=== PATIENT | male | born 1970 | race Caucasian/White ===

== ENCOUNTER 2018-01-02 16:42 | Emergency (ER) | payer OTHER ==
[2018-01-02 16:57] VITALS: O2SAT 98
--- NOTE | 2018-01-02 17:20 | ERPHSYRPT ---
- History of Present Illness Time Seen by Provider: 01/02/18 17:12 Source: patient Exam Limitations: no limitations Patient Subjective Stated Complaint: Cough, Left sided rib pain Triage Nursing Assessment: Pt presents to the ED with complaints of cough and left sided rib pain. Pt states no injury to rib area, pain worse with deep breathing and movement. No distress noted, skin PWD. Physician History: The patient is a 47-year-old male with his mother complaining of a cough and chills for 2 weeks. Last night he started to have left-sided rib pain with each breath and with coughing. He smokes. He he denies shortness of breath. He denies chest pain. His past medical history is significant for high cholesterol. Timing/Duration: week(s) (2) Cough Quality/Degree: moderate, dry cough Possible Cause: no prior episodes Modifying Factors: Improves With: coughing, deep breath Associated Symptoms: chills Allergies/Adverse Reactions: strawberry Allergy (Severe, Verified 01/02/18 16:59) Swelling latex Allergy (Mild, Verified 01/02/18 16:59) Hives Home Medications: Aspirin EC 81 mg [Ecotrin 81 mg] 81 mg PO DAILY 07/18/17 [History] Hx Tetanus, Diphtheria Vaccination/Date Given: No Hx Influenza Vaccination/Date Given: No Hx Pneumococcal Vaccination/Date Given: No Immunizations Up to Date: No - Review of Systems Constitutional: Chills Eyes: No Symptoms Ears, Nose, & Throat: No Symptoms Respiratory: Cough Cardiac: Other (rib pain) Abdominal/Gastrointestinal: No Abdominal Pain, No Nausea, No Vomiting, No Diarrhea Genitourinary Symptoms: No Dysuria Musculoskeletal: No Back Pain, No Neck Pain Skin: No Rash Neurological: No Dizziness, No Focal Weakness, No Sensory Changes Psychological: No Symptoms Endocrine: No Symptoms Hematologic/Lymphatic: No Symptoms Immunological/Allergic: No Symptoms All Other Systems: Reviewed and Negative - Past Medical History Neurological History: No Pertinent History Cardiac History: Arrhythmia, Coronary Artery Disease Respiratory History: COPD Endocrine Medical History: No Pertinent History Musculoskeletal History: Arthritis, Degenerative Disk Disease, Fractures - Past Surgical History Past Surgical History: Yes Neuro Surgical History: No Pertinent History Cardiac: No Pertinent History Respiratory: No Pertinent History Gastrointestinal: No Pertinent History Genitourinary: No Pertinent History Musculoskeletal: Orthopedic Surgery Male Surgical History: No Pertinent History Other Surgical History: Finger and ankle surgery - Social History Smoking Status: Current every day smoker How long have you smoked: 30years Exposure to second hand smoke: Yes Drug Use: none Patient Lives Alone: No - Nursing Vital Signs Nursing Vital Signs: Initial Vital Signs Temperature 98.4 F 01/02/18 16:53 Pulse Rate 76 01/02/18 16:53 Respiratory Rate 18 01/02/18 16:53 Blood Pressure 112/76 01/02/18 16:53 O2 Sat by Pulse Oximetry 98 01/02/18 16:53 Pain Scale Pain Intensity 7 - Physical Exam General Appearance: mild distress Eye Exam: PERRL/EOMI, eyes nml inspection Ears, Nose, Throat Exam: normal ENT inspection, TMs normal, pharynx normal, moist mucous membranes Neck Exam: normal inspection, non-tender, supple, full range of motion Respiratory Exam: normal breath sounds, lungs clear, No respiratory distress Cardiovascular Exam: regular rate/rhythm, normal heart sounds Gastrointestinal/Abdomen Exam: soft, No tenderness Rectal Exam: not done Back Exam: normal inspection, No CVA tenderness, No vertebral tenderness Extremity Exam: normal inspection, normal range of motion Neurologic Exam: alert, oriented x 3, cooperative, normal mood/affect, sensation nml, No motor deficits Skin Exam: normal color, warm, dry, No rash Lymphatic Exam: No adenopathy SpO2 Interpretation: normal SpO2: 98 Oxygen Delivery: Room Air - Progress Progress: unchanged Air Movement: good Progress Note: 01/02/18 17:24 Pt offered CXR and pt declined. Blood Culture(s) Obtained: No Antibiotics given: No Counseled pt/family regarding: diagnosis - Departure Time of Disposition: 17:24 Departure Disposition: Home Clinical Impression: Bronchitis, Pleurisy Condition: Stable Critical Care Time: No Referrals: DIEUDONNE BARCENAS [Primary Care Provider] - Additional Instructions: You have bronchitis and pleurisy. You were given Toradol 60 mg and Rocephin 1 g by IM ER. Take azithromycin as directed. Take naproxen 500 mg every 12 hours as needed for pain. Follow-up on Saturday if no improvement. Prescriptions: Azithromycin 250 mg [Zithromax 250 MG TABLET] 250 mg PO ZPACK #6 tablet Naproxen 500 mg PO BID PRN #30 tablet.
[2018-01-02] MEDS ORDERED: Rocephin 1000 MG INJ IM ONE (17:26)
[2018-01-02] MEDS ORDERED: TORAdol 30 mg Injection IM ONE (17:26)
[2018-01-02] MEDS ORDERED: Rocephin 1000 MG INJ ONE (17:37)
[2018-01-02] MEDS ORDERED: TORAdol 30 mg Injection ONE ×2 (17:37→17:42)
[2018-01-02] MEDS ORDERED: XYLOCAINE 1% HCL 20 ML MDV ONE (17:39)
[2018-01-02 17:56] VITALS: BP 110/72; PULSE 74
== END 2018-01-02 17:56 | disposition home or self-care (01) ==
LOC: ED 16:42
DX: J40 Bronchitis, not specified as acute or chronic (principal); R09.1 Pleurisy; J44.9 Chronic obstructive pulmonary disease, unspecified
CPT/HCPCS: 96372; 99284; J0696; J1885

== ENCOUNTER 2018-12-01 06:37 | Emergency (ER) | payer OTHER ==
[2018-12-01] MEDS ORDERED: DIPRIVAN 200 MG/20 ML IV ONE (06:38)
[2018-12-01] MEDS ORDERED: Ketamine HCl 50 MG/ML IJ ONE (06:38)
--- NOTE | 2018-12-01 07:22 | ERPHSYRPT ---
- History of Present Illness Time Seen by Provider: 12/01/18 07:00 Source: patient, family Patient Subjective Stated Complaint: pt is alert and oriented. pt is ambulatory with a steady gait. pt comes in with c/o feeling of "something stuck in his throat in two places." pt states this started after eating roast last night at about 1800. pt states this has happened on multiple occasions prior. pt denies reflux issues, denies ever getting an EGD. pt estimates he's vomited phlegm and foamy looking liquid 15-20 times since 1800. pt is not in any respiratory distress. Triage Nursing Assessment: see above Physician History: this is a 48-year-old white male who presents with gagging and vomiting up phlegm since last evening. Patient has had this occur in the past. Especially after eating roast beef. Patient ate roast beef last night. Patient has never had an upper endoscopy. He usually can cough or gag up the food bolus. He has been unable to do so. Within a matter of seconds the water and phlegm is brought back up. Patient denies shortness of breath, denies abdominal pain and he denies cp. Timing/Duration: abrupt onset Severity: mild ENT Location: throat Prearrival Treatment: no prearrival treatment Modifying Factors: Improves With: coughing, other (gagging) Associated Symptoms: cough Allergies/Adverse Reactions: strawberry Allergy (Severe, Verified 01/02/18 16:59) Swelling latex Allergy (Mild, Verified 01/02/18 16:59) Hives Home Medications: Aspirin EC 81 mg [Ecotrin 81 mg] 81 mg PO DAILY 07/18/17 [History] Atorvastatin Calcium [Lipitor] 40 mg PO DAILY 12/01/18 [History] Gabapentin 100 mg PO BID 12/01/18 [History] Midodrine HCl 5 mg PO BID 12/01/18 [History] Hx Tetanus, Diphtheria Vaccination/Date Given: Yes Hx Influenza Vaccination/Date Given: No Hx Pneumococcal Vaccination/Date Given: No Immunizations Up to Date: Yes - Review of Systems Eyes: No Symptoms Ears, Nose, & Throat: Other (gagging) Respiratory: Cough Cardiac: No Symptoms Abdominal/Gastrointestinal: Other (gagging) Genitourinary Symptoms: No Symptoms Musculoskeletal: No Symptoms Skin: No Symptoms Neurological: No Symptoms Psychological: No Symptoms Endocrine: No Symptoms Hematologic/Lymphatic: No Symptoms Immunological/Allergic: No Symptoms All Other Systems: Reviewed and Negative - Past Medical History Pertinent Past Medical History: Yes Neurological History: No Pertinent History Cardiac History: Arrhythmia, Coronary Artery Disease Respiratory History: COPD Endocrine Medical History: No Pertinent History Musculoskeletal History: Arthritis, Degenerative Disk Disease, Fractures GI Medical History: No Pertinent History History: No Pertinent History Psycho-Social History: No Pertinent History Male Reproductive Disorders: No Pertinent History - Past Surgical History Past Surgical History: Yes Neuro Surgical History: No Pertinent History Cardiac: No Pertinent History Respiratory: No Pertinent History Gastrointestinal: No Pertinent History Genitourinary: No Pertinent History Musculoskeletal: Orthopedic Surgery Male Surgical History: No Pertinent History Other Surgical History: Finger and ankle surgery - Social History Smoking Status: Current every day smoker How long have you smoked: 33 years Exposure to second hand smoke: Yes Drug Use: none Patient Lives Alone: No - Nursing Vital Signs Nursing Vital Signs: Initial Vital Signs Temperature 97.3 F 12/01/18 06:45 Pulse Rate 68 12/01/18 06:45 Respiratory Rate 18 12/01/18 06:45 Blood Pressure 111/17 12/01/18 06:45 O2 Sat by Pulse Oximetry 97 12/01/18 06:45 Pain Scale Pain Intensity 4 - Physical Exam General Appearance: alert, anxiety Eye Exam: bilateral eye: normal inspection, PERRL, EOMI Ear Exam: bilateral ear: auricle normal, canal normal, TM normal Nasal Exam: normal inspection Throat Exam: normal, pharynx normal Neck Exam: normal inspection, non-tender, supple, full range of motion Cardiovascular/Respiratory Exam: chest non-tender, normal breath sounds, regular rate/rhythm, heart sounds normal Abdominal Exam: non-tender, soft, no organomegaly Neurologic Exam: alert, oriented x 3, cooperative, 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 tested Skin Exam: normal color, warm, dry SpO2 Interpretation: normal SpO2: 97 Oxygen Delivery: Room Air Ordered Tests: Active Orders 24 hr Category Date Time Status Gastric Tube Insertion STAT Care 12/01/18 09:18 Active ESOPHOGRAM [BARIUM SWALLOW ESOPHOGRAM] Stat Exams 12/01/18 10:00 Completed Medication Summary Discontinued Medications Generic Name Dose Route Start Last Admin Trade Name Freq PRN Reason Stop Dose Admin Glucagon 1 mg 12/01/18 07:24 12/01/18 07:27 Glucagen 1 Mg IM 12/01/18 07:25 1 mg STAT ONE Administration Glucagon Confirm 12/01/18 07:27 Glucagen 1 Mg Administered 12/01/18 07:28 Dose 1 mg .ROUTE .STK-MED ONE - Progress Progress: unchanged Progress Note: 12/01/18 09:17 pt states he feels the food bolus has moved distally. but not completely gone. pt did spit up again but delayed. 12/01/18 10:[address] de souza. i reviewed pts hx, condition and xray results. he accepts pt for upper endoscopy. approx 1200 to 1230 pt will be discharged to outpt. Counseled pt/family regarding: diagnosis, need for follow-up, rad results - Departure Time of Disposition: 10:38 Departure Disposition: Home Clinical Impression: Food impaction of esophagus Condition: Stable Critical Care Time: No Referrals: DIEUDONNE BARCENAS [Primary Care Provider] -
[2018-12-01] MEDS ORDERED: GlucaGen 1 MG IM ONE (07:24)
[2018-12-01] MEDS ORDERED: GlucaGen 1 MG ONE (07:27)
--- NOTE | 2018-12-01 10:13 | XRAY ---
Indication: Difficulty swallowing. Stuck food bolus. Esophagram performed using diluted Gastrografin. Patient ingested small amount of Gastrografin without miss swallow or aspiration. Contrast collects in the distal esophagus just above the GE junction due to complete obstruction presumed from reported food bolus. No abnormal extravasation or leak. Impression: Distal esophageal obstruction presumed from reported food bolus. Approximately 0.4 minute fluoroscopy used. Comment: Immediate telephone report was given to the ordering clinician.
[2018-12-01 10:39] VITALS: O2SAT 97
[2018-12-01 11:26] VITALS: BP 113/71; PULSE 65
--- NOTE | 2018-12-02 07:42 | OP ---
SURGERY DATE/TIME: 12/01/2018 1155 PREOPERATIVE DIAGNOSIS: Impacted food bolus. POSTOPERATIVE DIAGNOSES: 1) Impacted food bolus, resolved. 2) Distal esophageal stricture. PROCEDURE: EGD. SURGEON: Zay Kelley M.D. ANESTHESIA: MAC by Buzz Huber CRNA. ESTIMATED BLOOD LOSS: None. SPECIMENS: None. INDICATION: The patient came into the emergency room with impacted food bolus verified with esophagogram. He ate beef roast yesterday and has been unable to tolerate anything by mouth including water since the incident. He failed Glucagon and other measures in the emergency department. DESCRIPTION OF PROCEDURE: He went to endoscopy where he underwent monitored anesthesia. The scope was then inserted into the posterior oropharynx and under direct visualization the esophagus was traversed. There was impacted bolus in the distal esophagus as expected which was fairly easily advanced into the gastric cavity. There was some esophageal irritation in the area of impaction with suggestion of some mild stricture at that point. There were no obvious masses or gastric mucosal abnormalities. The gastric cavity and distal esophagus were suctioned with fluid removed to prevent any vomiting or aspiration. The scope was removed and the patient was transferred to the recovery room in good condition. I have discussed with he and his accompanying family member that I would suggest follow up with general surgery for possible dilatation of distal esophageal stricture once he heals. At this point I recommend a soft diet until the area has healed with the impacted food bolus.
== END 2018-12-01 13:10 | disposition home or self-care (01) ==
LOC: ED 06:37
DX: T18.128A Food in esophagus causing other injury, initial encounter (principal); R05 Cough; Z79.899 Other long term (current) drug therapy; I25.10 Atherosclerotic heart disease of native coronary artery without angina pectoris
CPT/HCPCS: 74220; 96372; 99140; 99284; J1610; J2704

== ENCOUNTER 2019-06-02 14:57 | Emergency (ER) | payer OTHER ==
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
[2019-06-02 16:45] VITALS: O2SAT 98
[2019-06-02] MEDS ORDERED: Cyclobenzaprine 10 MG ONE (17:11)
[2019-06-02] MEDS ORDERED: TORAdol 30 mg Injection ONE (17:11)
[2019-06-02] MEDS: Cyclobenzaprine 10 MG PO ONE (17:13)
[2019-06-02] MEDS: TORAdol 30 mg Injection IM ONE (17:14)
[2019-06-02 17:34] VITALS: BP 112/56; PULSE 78
== END 2019-06-02 17:34 | disposition home or self-care (01) ==
LOC: ED 14:57
DX: M54.2 Cervicalgia (principal); V53.5XXA Driver of pick-up truck or van injured in collision with car, pick-up truck or van in traffic accident, initial encounter; Y92.488 Other paved roadways as the place of occurrence of the external cause; Y99.2 Volunteer activity
CPT/HCPCS: 70450; 72125; 96372; 99285; J1885; L0120; A9270-GY

== ENCOUNTER 2019-10-09 13:13 | Emergency (ER) | payer OTHER ==
[2019-10-09] MEDS ORDERED: Sodium Chloride 0.9% 1000 ML 1,000 ML IV STA (13:36)
[2019-10-09] MEDS ORDERED: BABY ASPIRIN 81 MG CHEW PO ONE (13:36)
[2019-10-09] MEDS ORDERED: Sodium Chloride 0.9% 1000 ML 1,000 ML ONE (13:50)
[2019-10-09] MEDS ORDERED: BABY ASPIRIN 81 MG CHEW ONE (13:50)
[2019-10-09 13:52] LABS: BASOPHIL % 0.1 % (0.0-0.4); Basophil (Absolute #) 0.01 (0-0.4); Eosinophil % 0.2 % (0.00-5.0); Eosinophil (Absolute #) 0.03 (0-0.5); Hemoglobin 13.4 gm/dl (12.5-18.0); Lymphocyte (Absolute #) 1.38 (1.0-4.6); Lymphocytes % 8.3 % (24.0-44.0); Mean Cell Volume 90.7 fl (78-100); Mean Corpuscular Hemoglobin 30.4 pg (26-32); Mean Corpuscular Hgb Concent. 33.5 g/dl (32-36); Mean Platelet Volume 9.7 fl (6-9.5); Monocyte (Absolute #) 1.46 (0.0-1.3); Monocytes % 8.8 % (0.0-12.0); Neutrophil % 82.6 % (36.0-66.0); Platelet Count 218 K/mm3 (150-450); Red Blood Count 4.41 M/mm3 (4.1-5.6); Red Cell Distribution Width 13.4 % (11.5-14.0); White Blood Count 16.7 K/mm3 (4.0-10.5)
[2019-10-09 14:05] LABS: ALBUMIN 4.1 g/dL (3.5-5.0); ALKALINE PHOSPHATASE 81 U/L (38-126); ANION GAP 13.6 MEQ/L (5-15); BLOOD UREA NITROGEN 11 mg/dL (9-20); CHLORIDE 103 mmol/L (98-107); Calcium 9.1 mg/dL (8.4-10.2); Carbon Dioxide 27 mmol/L (22-30); Creatinine 1 0.73 mg/dL (0.66-1.25); Glucose 115 mg/dL (74-106); Potassium 4.1 mmol/L (3.5-5.1); SGOT/AST 37 U/L (17-59); SGPT/ALT 24 U/L (0-50); SODIUM 140 mmol/L (137-145)
--- NOTE | 2019-10-09 14:26 | XRAY ---
Indication: Headache and body numbness. Multiple contiguous axial images obtained through the head without contrast. Comparison: June 02, 2019. Again normal appearing brain parenchyma, ventricles, and bony calvarium. Visualized paranasal sinuses and mastoid air cells are clear. Impression: Continued normal CT head without contrast exam. CTDI 60.76
--- NOTE | 2019-10-09 14:28 | XRAY ---
Indication: Left chest pain. Comparison: March 12, 2017. PA/lateral chest again hyperinflated with new subtle lingula infiltrate/atelectasis. Heart is not enlarged again with a few mediastinal calcified nodes. Bony thorax intact.
[2019-10-09 15:22] VITALS: BP 101/67; PULSE 63; O2SAT 96
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
[2019-10-09 15:42] LABS: Appearance CLEAR (CLEAR); Bilirubin NEGATIVE (NEGATIVE); Blood NEGATIVE Ery/ul (0-5); Glucose NEGATIVE (NEGATIVE); Ketones NEGATIVE (NEGATIVE); Leukocyte Esterase NEGATIVE (NEGATIVE); Nitrite NEGATIVE (NEGATIVE); Protein,Urine Dip NEGATIVE (Negative); Specific Gravity 1.008 (1.005-1.025); Urobilinogen NEGATIVE mg/dL (0-1)
== END 2019-10-09 16:53 | disposition home or self-care (01) ==
LOC: ED 13:13
DX: M94.0 Chondrocostal junction syndrome [Tietze] (principal); D72.829 Elevated white blood cell count, unspecified; Z79.899 Other long term (current) drug therapy
CPT/HCPCS: 36000; 36415; 70450; 71046; 80053; 81001; 84484; 85025; 93005; 96360; 96374; 99284; 99291; A9270-GY